=== PATIENT | male | born 1955 | race Caucasian/White ===

== ENCOUNTER 2019-03-07 06:07 | Inpatient (IN) ==
[2019-03-07] MEDS ORDERED: SODIUM CHLORIDE 0.9% 1,000 ML IV STA ×3 (06:44→12:00)
[2019-03-07] MEDS ORDERED: ONDANSETRON 4 MG/2 ML VIAL IV STA (06:44)
[2019-03-07] MEDS ORDERED: HYDROmorphone 2 MG/1 ML VIAL IV STA ×4 (06:44→14:55)
[2019-03-07] MEDS ORDERED: KETOROLAC 30 MG/1 ML VIAL IV STA (07:36)
[2019-03-07 08:58] LABS: Basophils % 0.2 % (0.0-0.8); Eosinophils % 0.1 % (0.00-10.9); Hematocrit 46.2 VOL% (42.0-52.0); Hemoglobin 15.7 GM/DL (14.0-18.0); Immature Granulocytes % 0.7 %; Immature Granulocytes Absolute 0.07 #; Lymphocytes # 0.4 10*3/uL (1.4-4.0); Lymphocytes % 4.1 % (21.2-54.2); Mean Corpuscular Volume 90.6 FL (87-102); Mean Platelet Volume 12.1 FL (9.6-12.0); Monocytes % 3.7 % (1.7-12.7); Neutrophils % 91.2 % (38.7-73.9); Platelet Count 139 T/CUMM (130-400); Red Cell Distribution Width 12.3 % (9.3-17.3); White Blood Count 9.4 T/CUMM (4-12)
[2019-03-07 09:19] LABS: Alanine Aminotransferase 29 U/L (16-61); Albumin 3.8 G/DL (3.4-5.0); Alkaline Phosphatase 95 U/L (45-117); Aspartate Amino Transferase 16 U/L (0-37); Blood Urea Nitrogen 16 MG/DL (7-18); Calcium 8.8 MG/DL (8.5-10.1); Estimated Glom Filtration Rate 55 ML/MIN; Glucose 128 MG/DL (74-106); Osmolality,Calculated 285.1 MOS/KG (273-304); Total Protein 7.3 G/DL (6.4-8.3)
[2019-03-07 09:26] LABS: Band Neutrophils 1 % (0-10); Hypochromasia 1+; Lymphocytes 6 % (20-55); Platelet Estimate Normal; Segmented Neutrophils 91 % (50-85); Total Cells Counted 100
[2019-03-07] MEDS ORDERED: HYDROmorphone 2 MG/1 ML VIAL ONE (14:44)
[2019-03-07] MEDS: SODIUM CHLORIDE 0.9% 1,000 ML IV SCH (17:30)
[2019-03-07] MEDS: ONDANSETRON 4 MG/2 ML VIAL IV PRN (17:58)
[2019-03-07 22:09] LABS: Apearance,Urine CLEAR (Clear); Bacteria,Urine Occasional /HPF (Few); Bilirubin,Urine Negative (Negative); Blood, Urine Large mg/dL (Negative); Glucose,Urine (UA) Negative (Negative); Ketones,Urine 5 mg/dL (Negative); Mucus,Urine Few /LPF (Occasional); Nitrite,Urine Negative (Negative); Protein,Urine Negative; RBC,Urine 152 /HPF (0-4); Squamous Epithelial Cell,Urine Occasional /HPF (0-10); Urine Color Amber (Yellow); Urine Specific Gravity 1.028 (1.001-1.035); Urine Urobilinogen < 2.0 EU/DL (0.2-1.0); WBC,Urine 4 /HPF (0-6)
[2019-03-07] MEDS: HYDROmorphone 2 MG/1 ML VIAL IV PRN (23:46)
[2019-03-08] MEDS: SODIUM CHLORIDE 0.9% 1,000 ML IV SCH ×3 (01:32→17:06)
[2019-03-08 05:54] LABS: Basophils % 0.2 % (0.0-0.8); Eosinophils % 0.1 % (0.00-10.9); Hematocrit 40.9 VOL% (42.0-52.0); Hemoglobin 13.2 GM/DL (14.0-18.0); Immature Granulocytes % 0.6 %; Immature Granulocytes Absolute 0.05 #; Lymphocytes # 0.8 10*3/uL (1.4-4.0); Lymphocytes % 9.9 % (21.2-54.2); Mean Corpuscular HGB Conc 32.3 GM/DL (32-36); Mean Corpuscular Volume 93.8 FL (87-102); Mean Platelet Volume 12.7 FL (9.6-12.0); Monocytes % 10.4 % (1.7-12.7); Neutrophils % 78.8 % (38.7-73.9); Platelet Count 109 T/CUMM (130-400); Red Blood Count 4.36 MC/CUMM (3.8-5.5); Red Cell Distribution Width 12.7 % (9.3-17.3); White Blood Count 8.3 T/CUMM (4-12)
[2019-03-08 06:29] LABS: Calcium 8.5 MG/DL (8.5-10.1); Osmolality,Calculated 286.8 MOS/KG (273-304)
[2019-03-08] MEDS: PANTOPRAZOLE 40 MG TABLET PO SCH (08:28)
[2019-03-08] MEDS: HYDROmorphone 2 MG/1 ML VIAL IV PRN (08:30)
[2019-03-08] MEDS: ONDANSETRON 4 MG/2 ML VIAL IV PRN ×2 (08:30→17:04)
[2019-03-08] MEDS: TAMSULOSIN 0.4 MG CAPSULE PO SCH ×2 (10:18→20:44)
[2019-03-09] MEDS: SODIUM CHLORIDE 0.9% 1,000 ML IV SCH (02:01)
[2019-03-09] MEDS: PANTOPRAZOLE 40 MG TABLET PO SCH (09:52)
[2019-03-09] MEDS: TAMSULOSIN 0.4 MG CAPSULE PO SCH (09:53)
[2019-03-09 11:38] VITALS: BP 134/74
== END 2019-03-09 11:57 | disposition home or self-care (01) | DRG 694 ==
LOC: N.ED 06:07 → N.EDINP 06:07 → N.5E 17:26
PROVIDERS: ADMIT Internal Medicine Geriatric Medicine; ATTEND Internal Medicine Geriatric Medicine